=== PATIENT | male | born 1950 | race American Indian/Alaskan Native ===

== ENCOUNTER 2020-06-21 12:40 | Emergency (ER) | payer MEDICARE, MEDICAID ==
--- NOTE | 2020-06-21 13:14 | Event Note ---
ED Screening Note Date of service: 06/21/20 Time: 13:12 ED Screening Note: Patient with past medical history of hypertension, glaucoma, and a CVA back in December presents to the ER today complaint of worsening left-sided weakness and numbness since the stroke in December. States his symptoms been gradually getting worse over the past few months. He also reports worsening shortness of breath and chest pain over the past couple months. He also reports generalized shaking, decreased appetite, abdominal pain, and abnormal gait. He states his symptoms have been going on since his stroke in March but he feels like it is getting worse. He states that he fell twice yesterday and today due to his balance issues. He denies any head injury. Patient supposed to be on Xarelto but he has been out of all of his medications for about a month. This initial assessment/diagnostic orders/clinical plan/treatment(s) is/are subject to change based on patients health status, clinical progression and re- assessment by fellow clinical providers in the ED. Further treatment and workup at subsequent clinical providers discretion. Patient/guardian urged not to elope from the ED as their condition may be serious if not clinically assessed and managed. Initial orders include: CBC, CMP, EKG, troponin, chest x-ray, urine, head CT
[2020-06-21 13:43] LABS: Basophils % (Auto) 0.6 % (0.0-1.8); Eosinophils # (Auto) 0.1 K/mm3 (0.0-0.4); Eosinophils % (Auto) 1.7 % (0.0-4.3); Hematocrit 42.6 % (35.5-45.6); Hemoglobin 14.6 gm/dl (11.8-15.2); Lymphocytes # (Auto) 1.2 K/mm3 (1.2-5.4); Lymphocytes % (Auto) 34.2 % (13.4-35.0); Mean Corpuscular HGB Conc 34 % (32-34); Mean Corpuscular Volume 99 fl (84-94); Monocytes # (Auto) 0.3 K/mm3 (0.0-0.8); Monocytes % (Auto) 9.7 % (0.0-7.3); Platelet Count 237 K/mm3 (140-440); Red Cell Distribution Width 16.1 % (13.2-15.2)
[2020-06-21 14:07] LABS: Alanine Aminotransferase 14 units/L (7-56); Albumin 4.2 g/dL (3.9-5); BUN/Creatinine Ratio 9; Blood Urea Nitrogen 7 mg/dL (9-20); Calcium 9.2 mg/dL (8.4-10.2); Hemolysis Index 7
--- NOTE | 2020-06-21 14:09 | XRay Report ---
CHEST 1 VIEW INDICATION: dyspnea/chest pain. COMPARISON: None FINDINGS: SUPPORT DEVICES: None. HEART: Within normal limits. LUNGS/PLEURA: No acute air space or interstitial disease. ADDITIONAL FINDINGS: Moderate dextroscoliosis centered at the lower thoracic spine level. IMPRESSION: 1. No acute findings. Signer Name: Bandar De Luna MD Signed: 06/21/2020 2:05 PM Workstation Name: [id number]
--- NOTE | 2020-06-21 15:12 | Cat Scan Report ---
CT head/brain wo con INDICATION: worsening left sided weakness/numbness. TECHNIQUE: Routine CT head. All CT scans at this location are performed using CT dose reduction for A FRED by means of automated exposure control. COMPARISON: None. FINDINGS: Intracranial: Confluent periventricular and centrum semiovale white matter hypoattenuation most consi stent with sequela of chronic microvascular disease. Age-indeterminate lacunar infarction. Artifact d egrades image quality of the posterior fossa. Suh-white matter differentiation is maintained. No int racranial hemorrhage. No extra axial collection. No hydrocephalus. No herniation. Sinuses: Paranasal sinuses and mastoid air cells are essentially clear. Orbits: Globes are intact. Calvarium: No acute fracture. IMPRESSION: 1. Age-indeterminate right thalamic lacunar infarction which is likely subacute or chronic. 2. Advanced white matter disease most consistent with sequela of chronic microvascular disease. Signer Name: Oliver Olivia MD Signed: 06/21/2020 3:08 PM Workstation Name: [id number]
--- NOTE | 2020-06-21 16:09 | Emergency Department Report ---
HPI - General Chief Complaint: Neuro Symptoms/Deficit Time Seen by Provider: 06/21/20 12:54 - HPI HPI: This is a 70-year-old -[place] male who presents to the emergency department with complaint of increased numbness and discomfort to the left side of his body over the past few months. The patient had a stroke in December for which she went to [facility]. This stroke left him with left-sided weakness and numbness, and also left him with an upper extremity tremor. The patient presents to the emergency department today saying that he has had increased numbness and discomfort to the left side of his face, left arm, left side of his chest and flank, and down his left leg, and that increased over the past few months. The patient is concerned as he says that one of the physicians at [facility] told him that he would most likely have improvement of his symptoms from the stroke. Patient also has a history of hypertension. He is a tobacco smoker. He does not follow with any primary care physician or neurologist. He denies any headache, vision change, slurred speech, fever, or any acute neurological changes. ED Past Medical Hx - Past Medical History Previous Medical History?: Yes Additional medical history: stroke - Surgical History Past Surgical History?: No - Social History Smoking Status: Never Smoker Substance Use Type: None - Medications Home Medications: Home Medications Medication Instructions Recorded Confirmed Last Taken Type Gabapentin 300 mg PO BID #14 cap 06/21/20 Unknown Rx ED Review of Systems ROS: Stated complaint: NUMBNESS LEFT SIDE Other details as noted in HPI Comment: All other systems reviewed and negative Constitutional: denies: chills, fever Eyes: denies: eye pain, vision change ENT: denies: ear pain, throat pain Respiratory: denies: cough, shortness of breath Cardiovascular: denies: chest pain, palpitations Gastrointestinal: denies: abdominal pain, vomiting Genitourinary: denies: dysuria, discharge Musculoskeletal: myalgia. denies: back pain, arthralgia Skin: denies: rash, lesions Neurological: numbness. denies: headache Physical Exam - Physical Exam Physical Exam: GENERAL: The patient is well-developed well-nourished. HENT: Normocephalic. Atraumatic. Patient has moist mucous membranes. EYES: Extraocular motions are intact. No nystagmus. NECK: Supple. Trachea is midline. CHEST/LUNGS: Clear to auscultation. There is no respiratory distress noted. HEART/CARDIOVASCULAR: Regular. There is no tachycardia. There is no murmur. ABDOMEN: Abdomen is soft, nontender. Patient has normal bowel sounds. There is no abdominal distention. SKIN: Skin is warm and dry. NEURO: The patient is awake, alert, and oriented. The patient is cooperative. Subjective decrease sensation to the left side of the face, left arm and left leg when compared to the right. Bilateral upper extremity distal tremor. No facial asymmetry. There is a mild left upper and lower extremity pronator drift. MUSCULOSKELETAL: There is no tenderness or deformity. There is no limitation range of motion. ED Medical Decision Making - Lab Data Result diagrams: 06/21/20 13:16 06/21/20 13:16 Lab Results 06/21/20 06/21/20 06/21/20 Range/Units 13:16 13:16 16:27 WBC 3.4 L (4.5-11.0) K/mm3 RBC 4.30 (3.65-5.03) M/mm3 Hgb 14.6 (11.8-15.2) gm/dl Hct 42.6 (35.5-45.6) % MCV 99 H (84-94) fl MCH 34 H (28-32) pg MCHC 34 (32-34) % RDW 16.1 H (13.2-15.2) % Plt Count 237 (140-440) K/mm3 Lymph % (Auto) 34.2 (13.4-35.0) % [place] % (Auto) 9.7 H (0.0-7.3) % Eos % (Auto) 1.7 (0.0-4.3) % Baso % (Auto) 0.6 (0.0-1.8) % Lymph # (Auto) 1.2 (1.2-5.4) K/mm3 [place] # (Auto) 0.3 (0.0-0.8) K/mm3 Eos # (Auto) 0.1 (0.0-0.4) K/mm3 Baso # (Auto) 0.0 (0.0-0.1) K/mm3 Seg Neutrophils % 53.8 (40.0-70.0) % Seg Neutrophils # 1.8 (1.8-7.7) K/mm3 Sodium 141 (137-145) mmol/L Potassium 3.7 (3.6-5.0) mmol/L Chloride 104.1 (98-107) mmol/L Carbon Dioxide 26 (22-30) mmol/L Anion Gap 15 mmol/L BUN 7 L (9-20) mg/dL Creatinine 0.8 (0.8-1.3) mg/dL Estimated GFR > 60 ml/min BUN/Creatinine Ratio 9 % Glucose 106 H (75-100) mg/dL Calcium 9.2 (8.4-10.2) mg/dL Magnesium 1.70 (1.7-2.3) mg/dL Total Bilirubin 0.40 (0.1-1.2) mg/dL AST 33 (5-40) units/L ALT 14 (7-56) units/L Alkaline Phosphatase 83 (35-129) units/L Troponin T < 0.010 (0.00-0.029) ng/mL Total Protein 7.6 (6.3-8.2) g/dL Albumin 4.2 (3.9-5) g/dL Albumin/Globulin Ratio 1.2 % Urine Color (Yellow) Urine Turbidity (Clear) Urine pH (5.0-7.0) Ur Specific [place] (1.003-1.030) Urine Protein (Negative) mg/dL Urine Glucose (UA) (Negative) mg/dL Urine Ketones (Negative) mg/dL Urine Blood (Negative) Urine Nitrite (Negative) Ur Reducing Substances Urine Bilirubin (Negative) Urine Ictotest Urine Urobilinogen (<2.0) mg/dL Ur Leukocyte Esterase (Negative) Urine WBC (Auto) (0.0-6.0) /HPF Urine RBC (Auto) (0.0-6.0) /HPF Urine Opiates Screen Negative Urine Methadone Screen Negative Ur Barbiturates Screen Negative Ur Phencyclidine Scrn Negative Ur Amphetamines Screen Negative U Benzodiazepines Scrn Negative Urine Cocaine Screen Negative U Marijuana (THC) Screen Positive Drugs of Abuse Note Disclamer 06/21/20 Range/Units 16:27 WBC (4.5-11.0) K/mm3 RBC (3.65-5.03) M/mm3 Hgb (11.8-15.2) gm/dl Hct (35.5-45.6) % MCV (84-94) fl MCH (28-32) pg MCHC (32-34) % RDW (13.2-15.2) % Plt Count (140-440) K/mm3 Lymph % (Auto) (13.4-35.0) % [place] % (Auto) (0.0-7.3) % Eos % (Auto) (0.0-4.3) % Baso % (Auto) (0.0-1.8) % Lymph # (Auto) (1.2-5.4) K/mm3 [place] # (Auto) (0.0-0.8) K/mm3 Eos # (Auto) (0.0-0.4) K/mm3 Baso # (Auto) (0.0-0.1) K/mm3 Seg Neutrophils % (40.0-70.0) % Seg Neutrophils # (1.8-7.7) K/mm3 Sodium (137-145) mmol/L Potassium (3.6-5.0) mmol/L Chloride (98-107) mmol/L Carbon Dioxide (22-30) mmol/L Anion Gap mmol/L BUN (9-20) mg/dL Creatinine (0.8-1.3) mg/dL Estimated GFR ml/min BUN/Creatinine Ratio % Glucose (75-100) mg/dL Calcium (8.4-10.2) mg/dL Magnesium (1.7-2.3) mg/dL Total Bilirubin (0.1-1.2) mg/dL AST (5-40) units/L ALT (7-56) units/L Alkaline Phosphatase (35-129) units/L Troponin T (0.00-0.029) ng/mL Total Protein (6.3-8.2) g/dL Albumin (3.9-5) g/dL Albumin/Globulin Ratio % Urine Color Yellow (Yellow) Urine Turbidity Clear (Clear) Urine pH 7.0 (5.0-7.0) Ur Specific [place] 1.013 (1.003-1.030) Urine Protein <15 mg/dl (Negative) mg/dL Urine Glucose (UA) Neg (Negative) mg/dL Urine Ketones Neg (Negative) mg/dL Urine Blood Neg (Negative) Urine Nitrite Neg (Negative) Ur Reducing Substances Not Reportable Urine Bilirubin Neg (Negative) Urine Ictotest Not Reportable Urine Urobilinogen < 2.0 (<2.0) mg/dL Ur Leukocyte Esterase Neg (Negative) Urine WBC (Auto) < 1.0 (0.0-6.0) /HPF Urine RBC (Auto) 1.0 (0.0-6.0) /HPF Urine Opiates Screen Urine Methadone Screen Ur Barbiturates Screen Ur Phencyclidine Scrn Ur Amphetamines Screen U Benzodiazepines Scrn Urine Cocaine Screen U Marijuana (THC) Screen Drugs of Abuse Note - Radiology Data Radiology results: report reviewed, image reviewed interpreted by me: Chest x-ray does not show any acute process. There are no pleural effusions, obvious pneumonia and there is no pneumothorax. No significant cardiomegaly. CT head/brain wo con INDICATION: worsening left sided weakness/numbness. TECHNIQUE: Routine CT head. All CT scans at this location are performed using CT dose reduction for ALARA by means of automated exposure control. COMPARISON: None. FINDINGS: Intracranial: Confluent periventricular and centrum semiovale white matter hypoattenuation most consistent with sequela of chronic microvascular disease. Age-indeterminate lacunar infarction. Artifact degrades image quality of the posterior fossa. Suh-white matter differentiation is maintained. No intracranial hemorrhage. No extra axial collection. No hyd rocephalus. No herniation. Sinuses: Paranasal sinuses and mastoid air cells are essentially clear. Orbits: Globes are intact. Calvarium: No acute fracture. IMPRESSION: 1. Age-indeterminate right thalamic lacunar infarction which is likely subacute or chronic. 2. Advanced white matter disease most consistent with sequela of chronic microvascular disease. - Medical Decision Making This patient presents to the emergency department with a complaint of some num bness, but also discomfort, to the left side of his body including the face, torso, arm and leg. Overall the patient says that this has been going on since he had a stroke back in December 2019, but it increased over the past few months. He denies any acute physical or neurological changes. Patient says that the discomfort he is experiencing is keeping him from getting appropriate sleep at night. On examination the patient does have some subjective decrease sensation to the left side of his body when compared to the right. There is some mild pronator drift to the left upper and lower extremities but this is chronic since his CVA. The patient was seen getting up and ambulating around t he emergency department multiple times using his cane. The patient had a CT scan of the head without contrast through triage that does not show any acute process. There is an age-indeterminate right thalamic lacunar infarct that is most likely subacute versus chronic and some chronic advanced white matter disease. The patient's labs are mostly unremarkable including CBC, metabolic panel, urinalysis and UDS, except for UDS positive for marijuana. Vital signs have been reassuring throughout his ED course including being afebrile. The patient denies any new or acute weakness. The decrease sensation/numbness also appears to be chronic. I suspect that the discomfort that he is experiencing is some type of neuropathy. The patient continues to smoke cigarettes. He does not follow-up with primary care regularly and does not have a neurologist. He appears safe for discharge home. He will be given outpatient referrals for primary care and a neurologist. He has been given a prescription for some gabapentin to help with the suspected neuropathy and hopefully will also help him get rest at night. We had a long conversation about smoking cessation and the importance of outpatient follow-up. The patient also understands the importance of returning to the closest emergency department if he does experience any worsening of his symptoms, any new or concerning symptoms not addressed during this emergency department visit, or with any acute distress. Critical Care Time: No Critical care attestation.: If time is entered above; I have spent that time in minutes in the direct care of this critically ill patient, excluding procedure time. ED Disposition Clinical Impression: Neuropathy, History of CVA (cerebrovascular accident), Tobacco use disorder Disposition: DC-01 TO HOME OR SELFCARE Is pt being admited?: No Condition: Stable Instructions: Neuropathic Pain, Tobacco Use Disorder Additional Instructions: Please follow-up with a primary care physician in the next few days. I have given you a referral for a local primary care physician, Dr. Aron Dougherty, as well as a local clinic, [facility]. I have given you a referral for a local neurologist, Dr. Guillory, to follow-up regarding your history of a stroke and what may be some neuropathic pain (nerve pain). You have been prescribed a medication that is sedating and therefore should not be taken prior to driving, working, and responsible for children and in no way should be mixed with alcohol of any quantity. Return to the emergency department with any worsening of your symptoms, new or concerning symptoms not addressed during this current emergency department visit, or with any acute distress. Prescriptions: Gabapentin 300 mg PO BID #14 cap Referrals: PRIMARY CAREMD [Primary Care Provider] - 2-3 Days DAMEON GUILLORY MD [Referring] - 2-3 Days ARON DOUGHERTY MD [Staff Physician] - 2-3 Days [facility] [Provider Group] - 2-3 Days Time of Disposition: 17:25
[2020-06-21 16:26] VITALS: BP 146/92
[2020-06-21 17:06] LABS: Bilirubin,Urine NEG (Negative); Blood,Urine NEG (Negative); Color,Urine Yellow (Yellow); Protein,Urine <15 mg/dL mg/dL (Negative); Urobilinogen,Urine < 2.0 mg/dL (<2.0)
[2020-06-21 17:11] LABS: Amphetamine Screen,Urine Negative; Benzodiazepines Screen,Urine Negative; Cocaine Screen,Urine Negative; Methadone Screen,Urine Negative; Opiate Screen,Urine Negative
[2020-06-21 17:15] LABS: WBC,Urine < 1.0 /HPF (0.0-6.0)
[2020-06-21 17:31] LABS: Cannabinoid Screen,Urine Positive
== END 2020-06-21 17:30 | disposition home or self-care (01) ==
LOC: ED 12:40
DX: G62.9 Polyneuropathy, unspecified (principal); Z72.0 Tobacco use; Z86.73 Personal history of transient ischemic attack (TIA), and cerebral infarction without residual deficits; Z79.899 Other long term (current) drug therapy
CPT/HCPCS: 36415; 70450; 71045; 80053; 80307; 81001; 83735; 84484; 85025

== ENCOUNTER 2021-03-02 22:39 | Emergency (ER) | payer MEDICARE ==
[2021-03-02] MEDS ORDERED: IBUPROFEN 800 MG TAB PO ONE (22:49)
[2021-03-02] MEDS ORDERED: ACETAMINOPHEN 500 MG TAB PO ONE (22:49)
--- NOTE | 2021-03-02 22:54 | Emergency Department Report ---
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 He normally walks with a cane or walker. He stumbled and fell onto the ground. He denies head trauma. He denies loss consciousness. He denies any associated injury. He is otherwise in his normal state of health. Complaint: fall -: Sudden Fall From: standing When Fall Occurred: other (3 days ago) Place Fall Occurred: home Loss of Consciousness: none Prolonged Down Time?: no Symptoms Prior to Fall: none Location: chest Severity: mild Quality: aching Context: tripped/slipped Associated Symptoms: denies - Related Data Previous Rx's Medication Instructions Recorded Last Taken Type Gabapentin 300 mg PO BID #14 cap 06/21/20 Unknown Rx HYDROcodone/APAP 5-325 [[place] 1 each PO Q6HR PRN #15 tablet 03/03/21 Unknown Rx 5/325] Ibuprofen [Motrin 400 MG tab] 400 mg PO Q8H PRN #20 tablet 03/03/21 Unknown Rx Allergies Allergy/AdvReac Type Severity Reaction Status Date / Time No Known Allergies Allergy Verified 06/21/20 12:49 ED Review of Systems ROS: Stated complaint: FALL INJURY Other details as noted in HPI Comment: All other systems reviewed and negative Constitutional: denies: fever Respiratory: denies: cough, shortness of breath Cardiovascular: chest pain Gastrointestinal: denies: abdominal pain, nausea, vomiting Neurological: denies: headache ED Past Medical Hx - Past Medical History Previous Medical History?: Yes Hx CVA: Yes Additional medical history: stroke - Surgical History Past Surgical History?: Yes Additional Surgical History: Neck surgery - Social History Smoking Status: Current Every Day Smoker Substance Use Type: Alcohol - Medications Home Medications: Home Medications Medication Instructions Recorded Confirmed Last Taken Type Gabapentin 300 mg PO BID #14 cap 06/21/20 Unknown Rx HYDROcodone/APAP 5-325 [[place] 1 each PO Q6HR PRN #15 tablet 03/03/21 Unknown Rx 5/325] Ibuprofen [Motrin 400 MG tab] 400 mg PO Q8H PRN #20 tablet 03/03/21 Unknown Rx ED Physical Exam - General Limitations: No Limitations General appearance: alert, in no apparent distress - Head Head exam: Present: atraumatic, normocephalic - Eye Eye exam: Present: normal appearance - ENT ENT exam: Present: mucous membranes moist - Neck Neck exam: Present: normal inspection, full ROM - Respiratory Respiratory exam: Present: normal lung sounds bilaterally, chest wall tenderness. Absent: respiratory distress, wheezes, rales, rhonchi - Cardiovascular Cardiovascular Exam: Present: regular rate, normal rhythm. Absent: systolic murmur, diastolic murmur, rubs, gallop - GI/Abdominal GI/Abdominal exam: Present: soft, normal bowel sounds. Absent: distended, tenderness, guarding, rebound - Extremities Exam Extremities exam: Present: normal inspection - Back Exam Back exam: Present: normal inspection - Neurological Exam Neurological exam: Present: alert, oriented X3 - Psychiatric Psychiatric exam: Present: normal affect, normal mood - Skin Skin exam: Present: warm, dry, intact, normal color. Absent: rash ED Course Vital Signs 03/02/21 22:52 Temperature 98.1 F Pulse Rate 81 Respiratory 20 Rate Blood Pressure 155/117 O2 Sat by Pulse 97 Oximetry ED Medical Decision Making - Radiology Data Radiology results: report reviewed Patient Name: CYRUS ALMANZA Gender: Male Date of : 1950 Referring Provider: GINGER SALDIVAR Organization: [facility] Accession Number: [id number] Requested Date: March 02, 2021 22:49 Report Status: Final Requested Procedure: 1 Procedure Description: XR ribs UNI w PA chest 3+V LT Modality: XR Findings Reporting MD: Orville Jean Dictation Time: March 02, 2021 22:54 River Tester: Not available Adjunct Sociology Professor Date: Chest with left RIBS 4 views. HISTORY: Rib pain status post fall. FINDINGS: Heart size is normal. Prominent dextroconvex scoliosis has its apex at the lower thoracic spine. The lungs are clear. Fractures involving the anterolateral aspect of the left sixth and seventh ribs. Signer Name: Orville Jean MD Signed: 03/02/2021 10:54 PM Workstation Name: [id number] - Medical Decision Making Rib fractures of the sixth and seventh rib without pneumothorax. Prescribed [place] and ibuprofen. Critical care attestation.: If time is entered above; I have spent that time in minutes in the direct care of this critically ill patient, excluding procedure time. ED Disposition Clinical Impression: Ribs, multiple fractures Disposition: 01 HOME / SELF CARE / HOMELESS Is pt being admited?: No Does the pt Need Aspirin: No Condition: Stable Instructions: Rib Fracture, [id number] Prescriptions: Ibuprofen [Motrin 400 MG tab] 400 mg PO Q8H PRN #20 tablet PRN Reason: Pain , Severe (7-10) HYDROcodone/APAP 5-325 [[place] 5/325] 1 each PO Q6HR PRN #15 tablet PRN Reason: Pain Referrals: RONNI YODER MD [Staff Physician] - as needed
--- NOTE | 2021-03-02 23:58 | XRay Report ---
Chest with left RIBS 4 views. HISTORY: Rib pain status post fall. FINDINGS: Heart size is normal. Prominent dextroconvex scoliosis has its apex at the lower thoracic s pine. The lungs are clear. Fractures involving the anterolateral aspect of the left sixth and seventh ribs. Signer Name: Orville Jean MD Signed: 03/02/2021 11:54 PM Workstation Name: [id number]
[2021-03-03 00:30] VITALS: BP 166/100
== END 2021-03-03 01:28 | disposition home or self-care (01) ==
LOC: ED 22:39
DX: S22.42XA Multiple fractures of ribs, left side, initial encounter for closed fracture (principal); F17.200 Nicotine dependence, unspecified, uncomplicated; Z98.890 Other specified postprocedural states; Z72.89 Other problems related to lifestyle; Z79.899 Other long term (current) drug therapy; W18.39XA Other fall on same level, initial encounter; Y93.89 Activity, other specified; Y92.89 Other specified places as the place of occurrence of the external cause; Y99.8 Other external cause status
CPT/HCPCS: 99284

== ENCOUNTER 2021-03-04 21:14 | Emergency (ER) | payer MEDICARE ==
[2021-03-04 21:25] VITALS: BP 148/98
[2021-03-04] MEDS ORDERED: KETOROLAC 60 MG/2 ML INJ IM ONE (22:15)
[2021-03-04] MEDS ORDERED: HYDROcodone/ACETAMINOPHEN 5-325 MG TAB PO ONE (22:15)
--- NOTE | 2021-03-04 22:21 | Emergency Department Report ---
ED General Adult HPI - General Chief complaint: Pain General Stated complaint: NAUSEA/ABDOMINAL PAIN Time Seen by Provider: 03/04/21 22:05 Source: EMS Mode of arrival: Stretcher Limitations: No Limitations - History of Present Illness Initial comments: 70-year-old male with CVA residual left-sided deficit and hypertension presents to the hospital with complaints of continued left lateral rib pain. Patient was here on the 16 for the same and diagnosed with fractures involving the anterior aspect of the left sixth and seventh ribs via x-ray. Patient states he gave his prescriptions to someone to fill but they will not be able to get the medications for him until tomorrow. He received prescriptions for [place] 5/325 x 15 tablets and ibuprofen 400 mg x 20 tablets. Patient requesting something for pain to get him through the night due to persistent moderate to severe left- sided rib pain worse with movement, palpation, and deep inspiration. Patient denies shortness of breath or fever. - Related Data Previous Rx's Medication Instructions Recorded Last Taken Type Gabapentin 300 mg PO BID #14 cap 06/21/20 Unknown Rx HYDROcodone/APAP 5-325 [[place] 1 each PO Q6HR PRN #15 tablet 03/03/21 Unknown Rx 5/325] Ibuprofen [Motrin 400 MG tab] 400 mg PO Q8H PRN #20 tablet 03/03/21 Unknown Rx Allergies Allergy/AdvReac Type Severity Reaction Status Date / Time No Known Allergies Allergy Verified 03/04/21 21:25 ED Review of Systems ROS: Stated complaint: NAUSEA/ABDOMINAL PAIN Other details as noted in HPI Comment: All other systems reviewed and negative ED Past Medical Hx - Past Medical History Hx Hypertension: Yes Hx CVA: Yes Additional medical history: stroke - Surgical History Additional Surgical History: Neck surgery - Social History Smoking Status: Current Every Day Smoker Substance Use Type: Alcohol - Medications Home Medications: Home Medications Medication Instructions Recorded Confirmed Last Taken Type Gabapentin 300 mg PO BID #14 cap 06/21/20 Unknown Rx HYDROcodone/APAP 5-325 [[place] 1 each PO Q6HR PRN #15 tablet 03/03/21 Unknown Rx 5/325] Ibuprofen [Motrin 400 MG tab] 400 mg PO Q8H PRN #20 tablet 03/03/21 Unknown Rx ED Physical Exam - General Limitations: No Limitations - Other Other exam information: General: No acute distress Head: Atraumatic Eyes: normal appearance ENT: Moist mucous membranes Neck: Normal appearance, no midline tenderness Chest: Clear to auscultation bilaterally. Reproducible left lower and lateral rib tenderness to palpation CV: Regular rate and rhythm Abdomen: Soft, normal bowel sounds, nontender, nondistended, no rebound or guarding Back: Normal inspection Extremity: Normal inspection, full range of motion Neuro: Alert O x 3, speech clear, left-sided arm and leg weakness compared to right chronic as per patient Psych: Appropriate behavior Skin: No rash ED Course Vital Signs 03/04/21 21:24 Temperature 97.7 F Pulse Rate 76 Respiratory 16 Rate Blood Pressure 148/98 [Left] O2 Sat by Pulse 98 Oximetry ED Medical Decision Making - Medical Decision Making pt provided norco and toradol IM in the ED. Pt plans to get the script filled tomorrow. Vitals normal Critical Care Time: No Critical care attestation.: If time is entered above; I have spent that time in minutes in the direct care of this critically ill patient, excluding procedure time. ED Disposition Clinical Impression: Chest wall pain Ribs, multiple fractures Qualifiers: Encounter type: subsequent encounter Laterality: left Disposition: 01 HOME / SELF CARE / HOMELESS Is pt being admited?: No Does the pt Need Aspirin: No Condition: Stable Instructions: Rib Fracture, [id number] Additional Instructions: Take the medication as prescribed. Follow-up with your doctor or doctor/clinic provided. Return if symptoms worsen as indicated by your discharge instructions. Referrals: your, doctor [Other] - 3-5 Days RONNI YODER MD [Staff Physician] - 3-5 Days Time of Disposition: 22:22
== END 2021-03-04 22:42 | disposition home or self-care (01) ==
LOC: ED 21:14
DX: S22.42XA Multiple fractures of ribs, left side, initial encounter for closed fracture (principal); R07.89 Other chest pain; I10 Essential (primary) hypertension; F17.200 Nicotine dependence, unspecified, uncomplicated; Z72.89 Other problems related to lifestyle; Z79.899 Other long term (current) drug therapy; X58.XXXA Exposure to other specified factors, initial encounter; Y93.89 Activity, other specified; Y92.89 Other specified places as the place of occurrence of the external cause; Y99.8 Other external cause status
CPT/HCPCS: 96372; 99283; J1885

== ENCOUNTER 2021-03-08 03:00 | Emergency (ER) | payer MEDICARE ==
[2021-03-08 03:07] VITALS: BP 162/109
[2021-03-08] MEDS ORDERED: fentaNYL 100 MCG/2 ML INJ IM ONE (03:13)
[2021-03-08] MEDS ORDERED: ONDANSETRON 4 MG/2 ML INJ IM ONE (03:13)
[2021-03-08] MEDS ORDERED: KETOROLAC 60 MG/2 ML INJ IM ONE (03:14)
--- NOTE | 2021-03-08 03:16 | Emergency Department Report ---
HPI - General Chief Complaint: Pain General Time Seen by Provider: 03/08/21 03:08 - HPI HPI: MSE 5 Patient is a 70-year-old male present with a chief complaint of rib pain. The patient sustained a fall from standing 02/28/2021 and presented to this ED 03/02/2021 where he was diagnosed with a left anterolateral 6th and 7th rib fracture without pneumothorax. The patient presented to this ED 03/04/2021 for the same pain after stating the person he gave his [place] prescription to his not able to go to the pharmacy until the following day. Today the patient states the person who he gave his prescription to has not returned with his medication so he presents today for pain control. ED Past Medical Hx - Past Medical History Hx Hypertension: Yes Hx CVA: Yes Additional medical history: stroke - Surgical History Additional Surgical History: Neck surgery - Family History Family history: no significant - Social History Smoking Status: Current Every Day Smoker (1/7 pack/day) Substance Use Type: None (Denies illicit drug use) - Medications Home Medications: Home Medications Medication Instructions Recorded Confirmed Last Taken Type Gabapentin 300 mg PO BID #14 cap 06/21/20 Unknown Rx HYDROcodone/APAP 5-325 [[place] 1 each PO Q6HR PRN #15 tablet 03/03/21 Unknown Rx 5/325] Ibuprofen [Motrin 400 MG tab] 400 mg PO Q8H PRN #20 tablet 03/03/21 Unknown Rx HYDROcodone/APAP 5-325 [[place] 1 - 2 each PO Q6HR PRN #14 tablet 03/08/21 Unknown Rx 5/325] Spirometers and Accessories 1 each MC TID #1 each 03/08/21 Unknown Rx [Mistassist] ED Review of Systems ROS: Stated complaint: RIB PAIN Other details as noted in HPI Constitutional: denies: fever Eyes: denies: eye pain ENT: denies: throat pain Respiratory: denies: shortness of breath Cardiovascular: denies: chest pain Endocrine: no symptoms reported Gastrointestinal: denies: abdominal pain Musculoskeletal: other (Left rib pain) Neurological: denies: headache Physical Exam - Physical Exam Vital Signs: Vital Signs 03/08/21 03:06 Temperature 98.9 F Pulse Rate 84 Respiratory 18 Rate Blood Pressure 162/109 [Left] O2 Sat by Pulse 98 Oximetry Physical Exam: GENERAL: The patient is well-developed well-nourished male sitting in chair not appearing to be in acute distress. [] HEENT: Normocephalic. Atraumatic. Extraocular motions are intact. Patient has moist mucous membranes. NECK: Supple. Trachea midline CHEST/LUNGS: Clear to auscultation. There is no respiratory distress noted. Breath sounds equal bilaterally HEART/CARDIOVASCULAR: Regular. There is no tachycardia. There is no gallop rub or murmur. ABDOMEN: Abdomen is soft, nontender. Patient has normal bowel sounds. There is no abdominal distention. SKIN: There is no rash. There is no edema. There is no diaphoresis. NEURO: The patient is awake, alert, and oriented. The patient is cooperative. GCS 15. The patient has normal speech MUSCULOSKELETAL: There is pain to the left ribs. There is no evidence of acute injury. ED Course Vital Signs 03/08/21 03:06 Temperature 98.9 F Pulse Rate 84 Respiratory 18 Rate Blood Pressure 162/109 [Left] O2 Sat by Pulse 98 Oximetry ED Medical Decision Making - Differential Diagnosis Rib fracture pain Critical care attestation.: If time is entered above; I have spent that time in minutes in the direct care of this critically ill patient, excluding procedure time. ED Disposition Clinical Impression: Ribs, multiple fractures Disposition: 01 HOME / SELF CARE / HOMELESS Is pt being admited?: No Does the pt Need Aspirin: No Condition: Stable Instructions: Rib Fracture, [id number], How to Use an Incentive Spirometer Additional Instructions: Return to the emergency department should you develop worsening symptoms, inability to tolerate food or liquids, high fever or any other concerns Prescriptions: Spirometers and Accessories [Mistassist] 1 each MC TID #1 each HYDROcodone/APAP 5-325 [[place] 5/325] 1 - 2 each PO Q6HR PRN #14 tablet PRN Reason: Pain Referrals: CARTER WARNER MD [Staff Physician] - 3-5 Days Time of Disposition: 03:21
== END 2021-03-08 04:05 | disposition home or self-care (01) ==
LOC: ED 03:00
DX: R07.81 Pleurodynia (principal); S22.42XD Multiple fractures of ribs, left side, subsequent encounter for fracture with routine healing; I10 Essential (primary) hypertension; F17.200 Nicotine dependence, unspecified, uncomplicated; Z86.73 Personal history of transient ischemic attack (TIA), and cerebral infarction without residual deficits; X58.XXXD Exposure to other specified factors, subsequent encounter
CPT/HCPCS: 96372; 99283; J1885; J2405; J3010

== ENCOUNTER 2021-03-10 12:30 | Emergency (ER) | payer MEDICARE ==
[2021-03-10] MEDS ORDERED: ONDANSETRON 4 MG/2 ML INJ IM ONE (13:39)
[2021-03-10] MEDS ORDERED: fentaNYL 100 MCG/2 ML INJ IM ONE (13:39)
[2021-03-10 13:53] VITALS: BP 122/74
--- NOTE | 2021-03-10 14:15 | Emergency Department Report ---
HPI - General Chief Complaint: Abdominal Pain Time Seen by Provider: 03/10/21 13:12 - HPI HPI: Room 29 The patient is a 70-year-old male present with a chief complaint of rib pain. The patient sustained a fall from standing 02/28/2021 and presented to this ED 03/02/2021 where he was diagnosed with a left anterolateral 6th and 7th rib fracture without pneumothorax. The patient presented to this ED 03/04/2021 for the same pain after stating the person he gave his [place] prescription to had not returned with his medication. I saw the patient 03/08/2021 for the same and he informed me that the person who had given his [place] prescription to had not return with this medication. I wrote the patient a prescription for [place] 5/325 #14 at that time upon discharge. Today the patient returns for her rib pain when asked him if he has been taking the pain medication he states the person who he had given the prescription to to get filled has not returned with his medication. I reminded the patient that he told me this last time that I saw him 2 days ago and then I had written him a prescription for pain medication. The patient then pauses and says "I do not know." ED Past Medical Hx - Past Medical History Previous Medical History?: Yes Hx Hypertension: Yes Hx CVA: Yes Additional medical history: stroke - Surgical History Additional Surgical History: Neck surgery - Family History Family history: no significant - Social History Smoking Status: Current Every Day Smoker (1/7 pack/day) Substance Use Type: None (Denies illicit drug use) - Medications Home Medications: Home Medications Medication Instructions Recorded Confirmed Last Taken Type Gabapentin 300 mg PO BID #14 cap 06/21/20 Unknown Rx HYDROcodone/APAP 5-325 [[place] 1 each PO Q6HR PRN #15 tablet 03/03/21 Unknown Rx 5/325] Ibuprofen [Motrin 400 MG tab] 400 mg PO Q8H PRN #20 tablet 03/03/21 Unknown Rx HYDROcodone/APAP 5-325 [[place] 1 - 2 each PO Q6HR PRN #14 tablet 03/08/21 Unknown Rx 5/325] Spirometers and Accessories 1 each MC TID #1 each 03/08/21 Unknown Rx [Mistassist] ED Review of Systems ROS: Stated complaint: FLANK PAIN Other details as noted in HPI Constitutional: no symptoms reported Respiratory: no symptoms reported Endocrine: no symptoms reported Physical Exam - Physical Exam Vital Signs: Vital Signs 03/10/21 03/10/21 12:33 13:50 Temperature 98.7 F 98.4 F Pulse Rate 91 H 81 Respiratory 16 12 Rate Blood Pressure 176/118 122/74 [Right] O2 Sat by Pulse 96 97 Oximetry Physical Exam: GENERAL: The patient is well-developed well-nourished male sitting in chair not appearing to be in acute distress HEENT: Normocephalic. Atraumatic. Extraocular motions are intact. Patient has moist mucous membranes. NECK: Supple. Trachea midline CHEST/LUNGS: Clear to auscultation. There is no respiratory distress noted. HEART/CARDIOVASCULAR: Regular. There is no tachycardia. There is no gallop rub or murmur. ABDOMEN: Abdomen is soft, nontender. Patient has normal bowel sounds. There is no abdominal distention. SKIN: There is no rash. There is no edema. There is no diaphoresis. NEURO: The patient is awake, alert, and oriented. The patient is cooperative. The patient has no focal neurologic deficits. The patient has normal speech. GCS 15 MUSCULOSKELETAL: There is no evidence of acute injury. ED Course Vital Signs 03/10/21 03/10/21 12:33 13:50 Temperature 98.7 F 98.4 F Pulse Rate 91 H 81 Respiratory 16 12 Rate Blood Pressure 176/118 122/74 [Right] O2 Sat by Pulse 96 97 Oximetry ED Medical Decision Making - Differential Diagnosis Rib fracture Critical care attestation.: If time is entered above; I have spent that time in minutes in the direct care of this critically ill patient, excluding procedure time. ED Disposition Clinical Impression: Ribs, multiple fractures Disposition: 01 HOME / SELF CARE / HOMELESS Is pt being admited?: No Does the pt Need Aspirin: No Condition: Stable Instructions: Rib Fracture, [id number] Additional Instructions: Return to the emergency department should you develop worsening symptoms, inability to tolerate food or liquids, high fever or any other concerns Referrals: JEAN PIERRE GREGORY MD [Primary Care Provider] - 3-5 Days MONTY ROCKWELL MD [Referring] - 3-5 Days [facility] [Provider Group] - 3-5 Days Time of Disposition: 14:22
== END 2021-03-10 14:47 | disposition home or self-care (01) ==
LOC: ED 12:30
DX: S22.42XA Multiple fractures of ribs, left side, initial encounter for closed fracture (principal); I10 Essential (primary) hypertension; Z79.899 Other long term (current) drug therapy; F17.200 Nicotine dependence, unspecified, uncomplicated; X58.XXXA Exposure to other specified factors, initial encounter; Y93.89 Activity, other specified; Y92.89 Other specified places as the place of occurrence of the external cause; Y99.8 Other external cause status
CPT/HCPCS: 96372; 99283; J2405; J3010

== ENCOUNTER 2021-09-01 22:04 | Emergency (ER) | payer MEDICARE ==
[2021-09-01] MEDS ORDERED: HYDROcodone/ACETAMINOPHEN 5-325 MG TAB PO ONE (23:12)
--- NOTE | 2021-09-01 23:24 | Emergency Department Report ---
HPI - General Time Seen by Provider: 09/01/21 23:01 - HPI HPI: Room 1 The patient is a 71-year-old male present with a chief complaint of shoulder pain. Patient states he came to the emergency department because he has had pain in both shoulders. Patient states since his stroke several months ago he has had pain in his left side. Patient states for the past 4 weeks he has frequently had intermittent pain in left shoulder described as sharp in nature. Patient also complains of pain in the right shoulder for the past 3 weeks intermittently and less frequent than the right. Patient denies other symptoms. Patient currently gives his left shoulder pain a score of 8/10 ED Past Medical Hx - Past Medical History Hx Hypertension: Yes Hx CVA: Yes (Left-sided weakness) Additional medical history: stroke - Surgical History Additional Surgical History: Neck surgery - Family History Family history: no significant - Social History Smoking Status: Current Every Day Smoker (04/30 pack/day) Substance Use Type: None (Denies illicit drug use), Alcohol (Occasional) - Medications Home Medications: Home Medications Medication Instructions Recorded Confirmed Last Taken Type Gabapentin 300 mg PO BID #14 cap 06/21/20 Unknown Rx HYDROcodone/APAP 5-325 [[place] 1 each PO Q6HR PRN #15 tablet 03/03/21 Unknown Rx 5/325] Ibuprofen [Motrin 400 MG tab] 400 mg PO Q8H PRN #20 tablet 03/03/21 Unknown Rx HYDROcodone/APAP 5-325 [[place] 1 - 2 each PO Q6HR PRN #14 tablet 03/08/21 Unknown Rx 5/325] Spirometers and Accessories 1 each MC TID #1 each 03/08/21 Unknown Rx [Mistassist] Naproxen [Naprosyn] 500 mg PO Q12H PRN #20 09/02/21 Unknown Rx traMADoL [Ultram] 50 mg PO Q6HR PRN #20 tablet 09/02/21 Unknown Rx ED Review of Systems ROS: Stated complaint: WEAKNESS Other details as noted in HPI Constitutional: no symptoms reported Eyes: denies: eye pain ENT: denies: throat pain Respiratory: no symptoms reported Cardiovascular: denies: chest pain Endocrine: no symptoms reported Gastrointestinal: denies: abdominal pain Genitourinary: denies: dysuria Musculoskeletal: arthralgia Neurological: denies: headache Physical Exam - Physical Exam Physical Exam: GENERAL: The patient is well-developed well-nourished male lying on stretcher not appearing to be in acute distress. [] HEENT: Normocephalic. Atraumatic. Extraocular motions are intact. Patient has moist mucous membranes. NECK: Supple. Trachea midline CHEST/LUNGS: Clear to auscultation. There is no respiratory distress noted. HEART/CARDIOVASCULAR: Regular. There is no tachycardia. There is no gallop rub or murmur. 2+ left radial ABDOMEN: Abdomen is soft, nontender. Patient has normal bowel sounds. There is no abdominal distention. SKIN: There is no rash. There is no edema. There is no diaphoresis. NEURO: The patient is awake, alert, and oriented. The patient is cooperative. The patient has left sided weakness from previous CVA. The patient has normal speech MUSCULOSKELETAL: There is no evidence of acute injury. ED Medical Decision Making - Lab Data Result diagrams: 09/01/21 23:31 09/01/21 23:31 Laboratory Tests 09/01/21 09/01/21 09/02/21 23:31 23:31 02:32 WBC 6.1 RBC 4.07 Hgb 13.1 Hct 39.2 MCV 96 H MCH 32 MCHC 33 RDW 13.5 Plt Count 144 Lymph % (Auto) 11.5 L [place] % (Auto) 5.7 Eos % (Auto) 0.3 Baso % (Auto) 0.4 Lymph # (Auto) 0.7 L [place] # (Auto) 0.3 Eos # (Auto) 0.0 Baso # (Auto) 0.0 Seg Neutrophils % 82.1 H Seg Neutrophils # 5.0 Sodium 141 Potassium 3.7 Chloride 104.2 Carbon Dioxide 24 Anion Gap 17 BUN 23 H Creatinine 1.1 Estimated GFR > 60 BUN/Creatinine Ratio 21 Glucose 99 Calcium 9.8 Total Creatine Kinase 386 H CK-MB (CK-2) 4.9 H CK-MB (CK-2) Rel Index 1.2 Troponin T < 0.010 < 0.010 - EKG Data -: EKG Interpreted by [place] EKG shows normal: sinus rhythm, axis Rate: normal - EKG Data When compared to previous EKG there are: previous EKG unavailable Interpretation: other (No ischemic changes seen) - Radiology Data Radiology results: report reviewed (Bilateral shoulder x-ray), image reviewed (Bilateral shoulder x-ray) interpreted by me: Bilateral shoulder x-ray-no acute fracture, no dislocation [facility] [address] [place] [address] XRay Report Signed Patient: CYRUS ALMANZA MR#: [id number] : 1950 Acct:[id number] Age/Sex: 71 / M ADM Date: 09/01/21 Loc: ED Attending Dr: Ordering Physician: GRETTA MCCULLOUGH MD Date of Service: 09/01/21 Procedure(s): XR shoulder BILAT 2+V Accession Number(s): [id number] cc: GRETTA MCCULLOUGH MD Fluoro Time In Minutes: XR shoulder BILAT 2+V INDICATION / CLINICAL INFORMATION: Pain. COMPARISON: None available. FINDINGS: No acute fracture or malalignment of either shoulder. There is mild osteoarthritis bilaterally. No focal soft tissue abnormality. Visualized lungs are clear. IMPRESSION: No acute osseous abnormality of either shoulder. Signer Name: Jacqueline Bernal MD Signed: 09/01/2021 11:51 PM Workstation Name: [id number] Transcribed By: JS Dictated By: JACQUELINE BERNAL MD Electronically Authenticated By: JACQUELINE BERNAL MD Signed Date/Time: 09/01/212350 DD/ 48 TD/TT: - Differential Diagnosis Arthralgia, anginal equivalent, Critical care attestation.: If time is entered above; I have spent that time in minutes in the direct care of this critically ill patient, excluding procedure time. ED Disposition Clinical Impression: Left shoulder pain, Right shoulder pain Disposition: 01 HOME / SELF CARE / HOMELESS Is pt being admited?: No Does the pt Need Aspirin: No Condition: Stable Instructions: Shoulder Pain Additional Instructions: Return to the emergency department should you develop worsening symptoms, inability to tolerate food or liquids, high fever or any other concerns Prescriptions: Naproxen [Naprosyn] 500 mg PO Q12H PRN #20 PRN Reason: Pain, Moderate (4-6) traMADoL [Ultram] 50 mg PO Q6HR PRN #20 tablet PRN Reason: Pain Referrals: CARTER KENDRICK MD [Staff Physician] - 3-5 Days (Dr. Kendrick is an orthopedic surgeon. Please follow-up with him for further evaluation) Time of Disposition: 03:43
[2021-09-01 23:44] LABS: Basophils % (Auto) 0.4 % (0.0-1.8); Eosinophils % (Auto) 0.3 % (0.0-4.3); Hematocrit 39.2 % (35.5-45.6); Hemoglobin 13.1 gm/dl (11.8-15.2); Lymphocytes # (Auto) 0.7 K/mm3 (1.2-5.4); Lymphocytes % (Auto) 11.5 % (13.4-35.0); Mean Corpuscular HGB Conc 33 % (32-34); Mean Corpuscular Volume 96 fl (84-94); Monocytes # (Auto) 0.3 K/mm3 (0.0-0.8); Monocytes % (Auto) 5.7 % (0.0-7.3); Platelet Count 144 K/mm3 (140-440); Red Blood Count 4.07 M/mm3 (3.65-5.03); Red Cell Distribution Width 13.5 % (13.2-15.2)
--- NOTE | 2021-09-01 23:55 | XRay Report ---
XR shoulder BILAT 2+V INDICATION / CLINICAL INFORMATION: Pain. COMPARISON: None available. FINDINGS: No acute fracture or malalignment of either shoulder. There is mild osteoarthritis bilaterally. No fo jennifer soft tissue abnormality. Visualized lungs are clear. IMPRESSION: No acute osseous abnormality of either shoulder. Signer Name: Orestes Bernal MD Signed: 09/01/2021 11:51 PM Workstation Name: [id number]
[2021-09-02 00:09] LABS: BUN/Creatinine Ratio 21; Blood Urea Nitrogen 23 mg/dL (9-20); Calcium 9.8 mg/dL (8.4-10.2); Creatine Kinase MB 4.9 ng/mL (0.0-4.0); Hemolysis Index 5
[2021-09-02 12:03] VITALS: BP 121/64
--- NOTE | 2021-09-03 09:57 | Electrocardiograph Report ---
[facility] Test Date: 2021-09-02 Test Time: 01:02:22 Pat Name: CYRUS ALMANZA Department: Room: Gender: M Hair Boiler: NIC : 1950 Requested By: GRETTA MCCULLOUGH Order Number: [id number] Reading MD: Jordan Anthony Measurements Intervals [place] Rate: 78 P: 65 NM: 163 QRS: 10 QRSD: 96 T: 66 QT: 417 QTc: 475 Interpretive Statements Pacemaker spikes or artifacts Sinus rhythm Atrial premature complex Probable anteroseptal infarct, old No previous ECG available for comparison Electronically Signed On 09-03-2021 9:57:24 EDT by Jordan Anthony
== END 2021-09-02 12:03 | disposition home or self-care (01) ==
LOC: ED 22:04
DX: M25.512 Pain in left shoulder (principal); M25.511 Pain in right shoulder; I10 Essential (primary) hypertension; Z86.73 Personal history of transient ischemic attack (TIA), and cerebral infarction without residual deficits; F17.200 Nicotine dependence, unspecified, uncomplicated
CPT/HCPCS: 36415; 80048; 82550; 82553; 84484; 85025; 93005; 99284

== ENCOUNTER 2021-09-03 02:32 | Emergency (ER) | payer MEDICARE ==
--- NOTE | 2021-09-03 07:09 | Emergency Department Report ---
HPI - General Chief Complaint: Alcohol Time Seen by Provider: 09/03/21 06:51 - HPI HPI: Room 1 The patient is a 71-year-old male brought in by police for unknown reasons. The patient was seen here last night and left AGAINST MEDICAL ADVICE. Patient s tates she was standing outside of a convenience store when police contacted. When asked why the patient states he does not know. The patient states police told him "they are going to come see me." Patient denies any preceding altercation/assault. Patient denies complaints. Per the charge nurse PD did not have addressed to the patient's long term so he was dropped off here in the ED. Transportation to take the patient to his long term has already been arranged for 09:30 ED Past Medical Hx - Past Medical History Hx Hypertension: Yes Hx CVA: Yes (Left-sided weakness) Additional medical history: stroke - Surgical History Additional Surgical History: Neck surgery - Family History Family history: no significant - Social History Smoking Status: Current Every Day Smoker (04/30 pack/day) Substance Use Type: None (Denies illicit drug use), Alcohol (Occasional) - Medications Home Medications: Home Medications Medication Instructions Recorded Confirmed Last Taken Type Gabapentin 300 mg PO BID #14 cap 06/21/20 Unknown Rx HYDROcodone/APAP 5-325 [[place] 1 each PO Q6HR PRN #15 tablet 03/03/21 Unknown Rx 5/325] Ibuprofen [Motrin 400 MG tab] 400 mg PO Q8H PRN #20 tablet 03/03/21 Unknown Rx HYDROcodone/APAP 5-325 [[place] 1 - 2 each PO Q6HR PRN #14 tablet 03/08/21 Unkn own Rx 5/325] Spirometers and Accessories 1 each MC TID #1 each 03/08/21 Unknown Rx [Mistassist] Naproxen [Naprosyn] 500 mg PO Q12H PRN #20 09/02/21 Unknown Rx traMADoL [Ultram] 50 mg PO Q6HR PRN #20 tablet 09/02/21 Unknown Rx ED Review of Systems ROS: Stated complaint: MEDICAL CLEARANCE Other details as noted in HPI Constitutional: no symptoms reported Eyes: denies: eye pain ENT: denies: throat pain Respiratory: no symptoms reported Cardiovascular: denies: chest pain Endocrine: no symptoms reported Gastrointestinal: denies: abdominal pain Genitourinary: denies: dysuria Musculoskeletal: denies: back pain Neurological: denies: headache Physical Exam - Physical Exam Vital Signs: Vital Signs 09/03/21 03:57 O2 Sat by Pulse 98 Oximetry Vital Signs 09/03/21 09/03/21 03:57 07:13 Temperature 98.2 F Pulse Rate 70 Respiratory 17 Rate Blood Pressure 134/84 [Left] O2 Sat by Pulse 98 96 Oximetry Physical Exam: GENERAL: The patient is well-developed well-nourished male lying on stretcher not appearing to be in acute distress. [] HEENT: Normocephalic. Atraumatic. Extraocular motions are intact. Patient has moist mucous membranes. NECK: Supple. Trachea midline CHEST/LUNGS: Clear to auscultation. There is no respiratory distress noted. HEART/CARDIOVASCULAR: Regular. There is no tachycardia. There is no gallop rub or murmur. ABDOMEN: Abdomen is soft, nontender. Patient has normal bowel sounds. There is no abdominal distention. SKIN: There is no rash. There is no edema. There is no diaphoresis. NEURO: The patient is awake, alert, and oriented. The patient is cooperative. GCS 15. The patient has normal speech . MUSCULOSKELETAL: There is no evidence of acute injury. ED Course Vital Signs 09/03/21 03:57 O2 Sat by Pulse 98 Oximetry ED Medical Decision Making - Differential Diagnosis Normal exam Critical care attestation.: If time is entered above; I have spent that time in minutes in the direct care of this critically ill patient, excluding procedure time. ED Disposition Clinical Impression: Normal exam Disposition: 01 HOME / SELF CARE / HOMELESS Is pt being admited?: No Does the pt Need Aspirin: No Condition: Stable Instructions: Health Maintenance After Age 65, Preventive Care 65 Years and Older, Male Additional Instructions: Return to the emergency department should you develop worsening symptoms, inability to tolerate food or liquids, high fever or any other concerns Referrals: RONNI YODER MD [Primary Care Provider] - 3-5 Days Time of Disposition: 08:51
[2021-09-03 09:26] VITALS: BP 144/74
== END 2021-09-03 09:33 | disposition home or self-care (01) ==
LOC: ED 02:32
DX: Z00.00 Encounter for general adult medical examination without abnormal findings (principal); I10 Essential (primary) hypertension; F17.200 Nicotine dependence, unspecified, uncomplicated; F10.20 Alcohol dependence, uncomplicated
CPT/HCPCS: 99283

== ENCOUNTER 2021-10-02 20:28 | Emergency (ER) | payer MEDICARE ==
[2021-10-02] MEDS ORDERED: ACETAMINOPHEN 500 MG TAB PO ONE (22:57)
[2021-10-02] MEDS ORDERED: LIDOCAINE (1%) 10 MG/1 ML VIAL 20 ML MDV INFILTRATI NR (23:00)
--- NOTE | 2021-10-02 23:29 | Emergency Department Report ---
ED Head Trauma HPI - General Chief complaint: Head Injury Stated complaint: LACERATION LEFT EYEBROW Time Seen by Provider: 10/02/21 23:24 Source: patient, EMS Mode of arrival: Stretcher Limitations: No Limitations - History of Present Illness Initial comments: 71 yo M who present with a fall that occurred about 5 hours ago. Pt denies any alcohol drinking today. Bleeding is minimal with direct pressure. He says he only trip and fell. Pt however asked me for pain medication. No other modifying or associated factors reported. - Related Data Previous Rx's Medication Instructions Recorded Last Taken Type Gabapentin 300 mg PO BID #14 cap 06/21/20 Unknown Rx HYDROcodone/APAP 5-325 [[place] 1 each PO Q6HR PRN #15 tablet 03/03/21 Unknown Rx 5/325] Ibuprofen [Motrin 400 MG tab] 400 mg PO Q8H PRN #20 tablet 03/03/21 Unknown Rx HYDROcodone/APAP 5-325 [[place] 1 - 2 each PO Q6HR PRN #14 tablet 03/08/21 Unknown Rx 5/325] Spirometers and Accessories 1 each MC TID #1 each 03/08/21 Unknown Rx [Mistassist] Naproxen [Naprosyn] 500 mg PO Q12H PRN #20 09/02/21 Unknown Rx traMADoL [Ultram] 50 mg PO Q6HR PRN #20 tablet 09/02/21 Unknown Rx Allergies/Adverse reactions: Allergies Allergy/AdvReac Type Severity Reaction Status Date / Time No Known Allergies Allergy Verified 09/02/21 02:04 ED Review of Systems ROS: Stated complaint: LACERATION LEFT EYEBROW Other details as noted in HPI Comment: All other systems reviewed and negative Eyes: other (left upper orbital laceration ) ED Past Medical Hx - Past Medical History Previous Medical History?: Yes Hx Hypertension: Yes Hx CVA: Yes (Left-sided weakness) Additional medical history: stroke - Surgical History Past Surgical History?: Yes Additional Surgical History: Neck surgery - Social History Smoking Status: Current Every Day Smoker Substance Use Type: None - Medications Home Medications: Home Medications Medication Instructions Recorded Confirmed Last Taken Type Gabapentin 300 mg PO BID #14 cap 06/21/20 Unknown Rx HYDROcodone/APAP 5-325 [[place] 1 each PO Q6HR PRN #15 tablet 03/03/21 Unknown Rx 5/325] Ibuprofen [Motrin 400 MG tab] 400 mg PO Q8H PRN #20 tablet 03/03/21 Unknown Rx HYDROcodone/APAP 5-325 [[place] 1 - 2 each PO Q6HR PRN #14 tablet 03/08/21 Unkno wn Rx 5/325] Spirometers and Accessories 1 each MC TID #1 each 03/08/21 Unknown Rx [Mistassist] Naproxen [Naprosyn] 500 mg PO Q12H PRN #20 09/02/21 Unknown Rx traMADoL [Ultram] 50 mg PO Q6HR PRN #20 tablet 09/02/21 Unknown Rx ED Physical Exam - General Limitations: No Limitations General appearance: alert, in no apparent distress - Head Head exam: Present: other (left upper orbital laceration 4 cm linear and 2.5 cm linear) - Eye Eye exam: Present: normal appearance Pupils: Present: normal accommodation - ENT ENT exam: Present: normal exam, normal orophraynx, mucous membranes dry - Neck Neck exam: Present: normal inspection, full ROM. Absent: tenderness - Respiratory Respiratory exam: Present: normal lung sounds bilaterally. Absent: respiratory distress, accessory muscle use - Cardiovascular Cardiovascular Exam: Present: regular rate, normal rhythm, normal heart sounds - GI/Abdominal GI/Abdominal exam: Present: soft, normal bowel sounds. Absent: distended, tenderness - Extremities Exam Extremities exam: Present: normal inspection, normal capillary refill. Absent: tenderness - Back Exam Back exam: Absent: tenderness - Neurological Exam Neurological exam: Present: alert, oriented X3 - Psychiatric Psychiatric exam: Present: normal affect, normal mood - Skin Skin exam: Present: warm, other (laceration to the left upper orbital ) ED Course Vital Signs 10/02/21 10/02/21 10/02/21 20:28 22:42 22:43 Temperature 98.4 F Pulse Rate 91 H 69 Respiratory 18 14 Rate Blood Pressure 121/84 Blood Pressure 148/97 [Left] O2 Sat by Pulse 98 98 98 Oximetry - Reevaluation(s) Reevaluation #1: 10/02/21 23:29 here with laceration to the left upper orbital measured to be 4 cm x 0.cm and 2.5 cm x 0.5 cm linear repaired with 5.0 silk/nylon. see procedure note for details. Pt not on blood thinner and denies any headache or concern for any intracranial bleeding. - Laceration /Wound Repair Left Upper Eye Wound Location: head, face Wound Length (cm): 7 Wound's Depth, Shape: superficial, linear Wound Explored: no foreign body removed Irrigated w/ Saline (ccs): 50 Betadine Prep?: Yes Anesthesia: 1% Lidocaine Volume Anesthetic (ccs): 5 Wound Debrided: none Wound Repaired With: sutures Suture Size/Type: 5:0, nylon Number of Sutures: 9 Layer Closure?: Yes Sterile Dressing Applied?: Yes Progress: [pt tolerated procedure wall Critical care attestation.: If time is entered above; I have spent that time in minutes in the direct care of this critically ill patient, excluding procedure time. ED Disposition Clinical Impression: Laceration of left orbital rim without complication Qualifiers: Encounter type: initial encounter Qualified Code(s): S01.112A - Laceration without foreign body of left eyelid and periocular area, initial encounter Disposition: HOME / SELF CARE / HOMELESS Is pt being admited?: No Does the pt Need Aspirin: No Condition: Stable Instructions: Laceration Care, Adult, [id number], Sutured Wound Care, [id number] Additional Instructions: Avoid excessive wetness to prevent infecting your sutured wound Call and schedule a follow up with your doctor in 5-7 days for suture removal and wound check It is okay to take Over the counter Tylenol every 6-8 hours as needed for pain Call or return to ED if you have any concern or your symptoms worsen Time of Disposition: 23:34
[2021-10-03 00:29] VITALS: BP 155/96
== END 2021-10-03 00:30 | disposition home or self-care (01) ==
LOC: ED 20:28
DX: S01.112A Laceration without foreign body of left eyelid and periocular area, initial encounter (principal); I10 Essential (primary) hypertension; Z86.73 Personal history of transient ischemic attack (TIA), and cerebral infarction without residual deficits; Z98.890 Other specified postprocedural states; F17.290 Nicotine dependence, other tobacco product, uncomplicated; W01.0XXA Fall on same level from slipping, tripping and stumbling without subsequent striking against object, initial encounter; Y93.89 Activity, other specified; Y92.89 Other specified places as the place of occurrence of the external cause; Y99.8 Other external cause status
CPT/HCPCS: 99283

== ENCOUNTER 2021-10-03 15:47 | Emergency (ER) | payer MEDICARE ==
[2021-10-03] MEDS ORDERED: SODIUM CHLORIDE 0.9% 1000 ML 1,000 ML IV ONE (16:15)
--- NOTE | 2021-10-03 16:44 | XRay Report ---
CHEST 1 VIEW INDICATION: Altered Mental Status. COMPARISON: 03/02/2021 FINDINGS: SUPPORT DEVICES: None. HEART: Within normal limits. LUNGS/PLEURA: No acute air space or interstitial disease. ADDITIONAL FINDINGS: Moderate scoliotic curvature of the spine again noted. IMPRESSION: 1. No acute findings. Signer Name: Bandar De Luna MD Signed: 10/03/2021 4:39 PM Workstation Name: [id number]
[2021-10-03 16:54] LABS: Basophils % (Auto) 0.4 % (0.0-1.8); Eosinophils % (Auto) 0.4 % (0.0-4.3); Hemoglobin 14.1 gm/dl (11.8-15.2); Lymphocytes # (Auto) 0.7 K/mm3 (1.2-5.4); Mean Corpuscular HGB Conc 34 % (32-34); Mean Corpuscular Volume 98 fl (84-94); Monocytes # (Auto) 0.3 K/mm3 (0.0-0.8); Monocytes % (Auto) 6.3 % (0.0-7.3); Platelet Count 163 K/mm3 (140-440); Red Cell Distribution Width 14.4 % (13.2-15.2)
[2021-10-03 17:08] LABS: INR 1.02 (0.87-1.13)
[2021-10-03 17:17] LABS: Alanine Aminotransferase 11 units/L (7-56); Albumin 4.8 g/dL (3.9-5); BUN/Creatinine Ratio 7; Blood Urea Nitrogen 8 mg/dL (9-20); Calcium 9.8 mg/dL (8.4-10.2); Hemolysis Index 2
[2021-10-03 19:03] LABS: Bilirubin,Urine NEG (Negative); Blood,Urine SM (Negative); Color,Urine Yellow (Yellow); Urobilinogen,Urine < 2.0 mg/dL (<2.0)
[2021-10-03 19:06] LABS: Bacteria,Urine 1+ /HPF (Negative); Hyaline Casts,Urine 42 /LPF; Mucus,Urine 3+ /HPF
[2021-10-03 19:10] LABS: Amphetamine Screen,Urine Negative; Benzodiazepines Screen,Urine Negative; Cocaine Screen,Urine Negative; Methadone Screen,Urine Negative; Opiate Screen,Urine Negative
[2021-10-03 19:31] LABS: Cannabinoid Screen,Urine Positive
[2021-10-04 09:19] LABS: Hematocrit 44.5 % (35.5-45.6); Hemoglobin 14.9 gm/dl (11.8-15.2); Mean Corpuscular HGB Conc 34 % (32-34); Mean Corpuscular Volume 98 fl (84-94); Platelet Count 179 K/mm3 (140-440); Red Blood Count 4.54 M/mm3 (3.65-5.03); Red Cell Distribution Width 14.6 % (13.2-15.2)
[2021-10-04 09:39] LABS: BUN/Creatinine Ratio 14; Blood Urea Nitrogen 13 mg/dL (9-20); Calcium 9.8 mg/dL (8.4-10.2); Hemolysis Index 8
[2021-10-04] MEDS ORDERED: SODIUM CHLORIDE 0.9% 1000 ML 1,000 ML IV ONE ×2 (12:26→15:32)
--- NOTE | 2021-10-04 13:01 | Emergency Department Report ---
ED Altered Mental Status HPI - General Chief Complaint: Altered Mental Status Stated Complaint: AMS/CONFUSION Time Seen by Provider: 10/03/21 16:13 Source: EMS Mode of arrival: Stretcher Limitations: Altered Mental Status - History of Present Illness Initial Comments: 71-year male with a past medical history of CVA residual left-sided weakness, previous neck surgery, and hypertension presents to the hospital with possible alteration mental status. Patient was seen here on October 02 and had laceration repair of his left eyebrow. Patient denies LOC and imaging was not obtained at that time. He was discharged and October 03 shortly after midnight and represented 15 hours later after being seen wandering outside by police department. Patient reports that he has been walking around outside and was found to be ANO x2 with delayed response to questions. Patient was read triage with alteration in mental status diagnosis. Since he has had 2 sets of labs 1 yesterday and today and initially refused CT ordered in triage. Patient states he is homeless and he "lives here". He states all his family is . He states year is 2002. He complains of a mild headache. He states he fell injuring his head due to his chronic left-sided weakness. He states he typically ambulates with a cane but has since misplaced it As per MAR patient received 1 L normal saline prior to my evaluation and is currently eating a meal Mr. Jourdan Sylvester ([employer]) [phone] is the point of contact. - Related Data Previous Rx's Medication Instructions Recorded Last Taken Type Gabapentin 300 mg PO BID #14 cap 06/21/20 Unknown Rx HYDROcodone/APAP 5-325 [[place] 1 each PO Q6HR PRN #15 tablet 03/03/21 Unknown Rx 5/325] Ibuprofen [Motrin 400 MG tab] 400 mg PO Q8H PRN #20 tablet 03/03/21 Unknown Rx HYDROcodone/APAP 5-325 [[place] 1 - 2 each PO Q6HR PRN #14 tablet 03/08/21 Unknown Rx 5/325] Spirometers and Accessories 1 each MC TID #1 each 03/08/21 Unknown Rx [Mistassist] Naproxen [Naprosyn] 500 mg PO Q12H PRN #20 09/02/21 Unknown Rx traMADoL [Ultram] 50 mg PO Q6HR PRN #20 tablet 09/02/21 Unknown Rx Allergies Allergy/AdvReac Type Severity Reaction Status Date / Time No Known Allergies Allergy Verified 09/02/21 02:04 ED Review of Systems ROS: Stated complaint: AMS/CONFUSION Other details as noted in HPI Comment: All other systems reviewed and negative ED Past Medical Hx - Past Medical History Previous Medical History?: Yes Hx Hypertension: Yes Hx CVA: Yes (Left-sided weakness) Additional medical history: stroke - Surgical History Past Surgical History?: Yes Additional Surgical History: Neck surgery - Social History Smoking Status: Current Every Day Smoker - Medications Home Medications: Home Medications Medication Instructions Recorded Confirmed Last Taken Type Gabapentin 300 mg PO BID #14 cap 06/21/20 Unknown Rx HYDROcodone/APAP 5-325 [[place] 1 each PO Q6HR PRN #15 tablet 03/03/21 Unknown Rx 5/325] Ibuprofen [Motrin 400 MG tab] 400 mg PO Q8H PRN #20 tablet 03/03/21 Unknown Rx HYDROcodone/APAP 5-325 [[place] 1 - 2 each PO Q6HR PRN #14 tablet 03/08/21 Unk nown Rx 5/325] Spirometers and Accessories 1 each MC TID #1 each 03/08/21 Unknown Rx [Mistassist] Naproxen [Naprosyn] 500 mg PO Q12H PRN #20 09/02/21 Unknown Rx traMADoL [Ultram] 50 mg PO Q6HR PRN #20 tablet 09/02/21 Unknown Rx ED Physical Exam - General Limitations: Altered Mental Status - Other Other exam information: General: No acute distress, just completed a meal Head: Left brow laceration status postrepair with dressing in place Eyes: normal appearance ENT: Moist mucous membranes Neck: Normal appearance, no midline tenderness, previous posterior neck surgery scar Chest: Clear to auscultation bilaterally CV: Regular rate and rhythm Abdomen: Soft, normal bowel sounds, nontender, nondistended, no rebound or guarding Back: Normal inspection Extremity: Normal inspection, full range of motion Neuro: Alert O x 2, no facial asymmetry, speech clear, weak left hand plan examiner with drift to the left upper and lower extremities chronic as per patient. 5/5 right upper and lower extremities Psych: Appropriate behavior Skin: No rash ED Course Vital Signs 10/03/21 10/03/21 10/03/21 15:48 17:18 17:20 Temperature 98.3 F Pulse Rate 98 H 82 Respiratory 18 Rate Blood Pressure 179/88 Blood Pressure 136/82 [Left] O2 Sat by Pulse 97 92 92 Oximetry 10/04/21 10/04/21 10/04/21 12:00 12:06 12:16 Temperature Pulse Rate 90 Respiratory 16 22 20 Rate Blood Pressure 155/87 Blood Pressure 155/87 [Left] O2 Sat by Pulse 99 98 Oximetry 10/04/21 10/04/21 10/04/21 12:30 12:46 13:00 Temperature Pulse Rate Respiratory 20 16 21 Rate Blood Pressure 156/96 155/93 131/82 Blood Pressure [Left] O2 Sat by Pulse 97 96 96 Oximetry 10/04/21 10/04/21 10/04/21 13:16 13:30 13:46 Temperature Pulse Rate 73 Respiratory 23 21 27 H Rate Blood Pressure 156/96 156/96 152/80 Blood Pressure [Left] O2 Sat by Pulse 97 97 96 Oximetry 10/04/21 10/04/21 10/04/21 14:00 14:05 14:16 Temperature Pulse Rate 74 77 66 Respiratory 25 H 15 20 Rate Blood Pressure 151/83 155/86 Blood Pressure 155/86 [Left] O2 Sat by Pulse 96 99 96 Oximetry 10/04/21 10/04/21 10/04/21 14:30 14:46 15:00 Temperature Pulse Rate 62 79 71 Respiratory 16 17 20 Rate Blood Pressure 144/86 147/83 164/99 Blood Pressure [Left] O2 Sat by Pulse 95 Oximetry 10/04/21 10/04/21 10/04/21 15:16 15:30 15:46 Temperature Pulse Rate 66 66 75 Respiratory 20 20 22 Rate Blood Pressure 144/86 161/94 157/85 Blood Pressure [Left] O2 Sat by Pulse Oximetry 10/04/21 10/04/21 10/04/21 16:00 16:16 16:30 Temperature Pulse Rate 67 65 61 Respiratory 21 22 19 Rate Blood Pressure 157/85 157/85 157/85 Blood Pressure [Left] O2 Sat by Pulse Oximetry - Consultations Consultation #1: 10/04/21 15:50 I spoke to case management Kerwin at this time. She was able to inform me that patient lives in a [facility]. I was able to obtain the [facility] providers name and number from previous medical record in August. Apparently Calin to arrange for transport multiple times while patient was in the waiting room however and even attempted to call the nurses station multiple times. For some reason transportation was not provided despite being arranged by Kerwin twice. A new chart was made for the patient to be seen for possible confusion and ou tside exposure. I spoke to Mr. Jourdan Sylvester ([employer]) from the [facility] and see states patient never made it home from 10/02 visit and he has been awaiting his arrival. He confirms that patient has baseline confusion and cannot be safely discharged to find his own way home. Once I receive CAT scan reports to medically clear patient I will recontact case management to arrange transport back to [facility]. I plan to instruct nursing staff to keep patient in the main department instead of the waiting rooms so that he does not wander and leave the department. Also I want to make sure that a nursing staff is responsible for following up to ensure patient's transportation is arranged and he can be safely discharged back home - Lab Data Result diagrams: 10/04/21 08:05 10/04/21 08:05 Lab Results 10/03/21 10/03/21 10/03/21 Range/Units 16:15 16:15 16:33 WBC 4.8 (4.5-11.0) K/mm3 RBC 4.30 (3.65-5.03) M/mm3 Hgb 14.1 (11.8-15.2) gm/dl Hct 42.0 (35.5-45.6) % MCV 98 H (84-94) fl MCH 33 H (28-32) pg MCHC 34 (32-34) % RDW 14.4 (13.2-15.2) % Plt Count 163 (140-440) K/mm3 Lymph % (Auto) 15.0 (13.4-35.0) % [place] % (Auto) 6.3 (0.0-7.3) % Eos % (Auto) 0.4 (0.0-4.3) % Baso % (Auto) 0.4 (0.0-1.8) % Lymph # (Auto) 0.7 L (1.2-5.4) K/mm3 [place] # (Auto) 0.3 (0.0-0.8) K/mm3 Eos # (Auto) 0.0 (0.0-0.4) K/mm3 Baso # (Auto) 0.0 (0.0-0.1) K/mm3 Seg Neutrophils % 77.9 H (40.0-70.0) % Seg Neutrophils # 3.7 (1.8-7.7) K/mm3 PT (12.2-14.9) Sec. INR (0.87-1.13) Sodium (137-145) mmol/L Potassium (3.6-5.0) mmol/L Chloride (98-107) mmol/L Carbon Dioxide (22-30) mmol/L Anion Gap mmol/L BUN (9-20) mg/dL Creatinine (0.8-1.3) mg/dL Estimated GFR ml/min BUN/Creatinine Ratio % Glucose (75-100) mg/dL Lactic Acid (0.7-2.0) mmol/L Calcium (8.4-10.2) mg/dL Total Bilirubin (0.1-1.2) mg/dL AST (5-40) units/L ALT (7-56) units/L Alkaline Phosphatase (35-129) units/L Total Creatine Kinase (55-170) units/L CK-MB (CK-2) (0.0-4.0) ng/mL CK-MB (CK-2) Rel Index (0-4) Troponin T (0.00-0.029) ng/mL C-Reactive Protein (0.00-1.30) mg/dL Total Protein (6.3-8.2) g/dL Albumin (3.9-5) g/dL Albumin/Globulin Ratio % TSH (0.270-4.200) mlU/mL Urine Color Yellow (Yellow) Urine Turbidity Clear (Clear) Urine pH 5.0 (5.0-7.0) Ur Specific [place] 1.019 (1.003-1.030) Urine Protein 100 mg/dl (Negative) mg/dL Urine Glucose (UA) Neg (Negative) mg/dL Urine Ketones Neg (Negative) mg/dL Urine Blood Sm (Negative) Urine Nitrite Neg (Negative) Urine Bilirubin Neg (Negative) Urine Urobilinogen < 2.0 (<2.0) mg/dL Ur Leukocyte Esterase Neg (Negative) Urine WBC (Auto) 6.0 (0.0-6.0) /HPF Urine RBC (Auto) 4.0 (0.0-6.0) /HPF U Epithel Cells (Auto) 1.0 (0-13.0) /HPF Urine Bacteria (Auto) 1+ (Negative) /HPF Hyaline Casts 42 /LPF Urine Mucus 3+ /HPF Salicylates (2.8-20.0) mg/dL Urine Opiates Screen Negative Urine Methadone Screen Negative Acetaminophen (10.0-30.0) ug/mL Ur Barbiturates Screen Negative Ur Phencyclidine Scrn Negative Ur Amphetamines Screen Negative U Benzodiazepines Scrn Negative Urine Cocaine Screen Negative U Marijuana (THC) Screen Positive Drugs of Abuse Note Disclamer Plasma/Serum Alcohol (0-0.07) % 10/03/21 10/03/21 10/03/21 Range/Units 16:33 16:33 16:33 WBC (4.5-11.0) K/mm3 RBC (3.65-5.03) M/mm3 Hgb (11.8-15.2) gm/dl Hct (35.5-45.6) % MCV (84-94) fl MCH (28-32) pg MCHC (32-34) % RDW (13.2-15.2) % Plt Count (140-440) K/mm3 Lymph % (Auto) (13.4-35.0) % [place] % (Auto) (0.0-7.3) % Eos % (Auto) (0.0-4.3) % Baso % (Auto) (0.0-1.8) % Lymph # (Auto) (1.2-5.4) K/mm3 [place] # (Auto) (0.0-0.8) K/mm3 Eos # (Auto) (0.0-0.4) K/mm3 Baso # (Auto) (0.0-0.1) K/mm3 Seg Neutrophils % (40.0-70.0) % Seg Neutrophils # (1.8-7.7) K/mm3 PT 14.5 (12.2-14.9) Sec. INR 1.02 (0.87-1.13) Sodium 142 (137-145) mmol/L Potassium 3.7 (3.6-5.0) mmol/L Chloride 105.5 (98-107) mmol/L Carbon Dioxide 22 (22-30) mmol/L Anion Gap 18 mmol/L BUN 8 L (9-20) mg/dL Creatinine 1.1 (0.8-1.3) mg/dL Estimated GFR > 60 ml/min BUN/Creatinine Ratio 7 % Glucose 134 H (75-100) mg/dL Lactic Acid 1.90 (0.7-2.0) mmol/L Calcium 9.8 (8.4-10.2) mg/dL Total Bilirubin 0.80 (0.1-1.2) mg/dL AST 35 (5-40) units/L ALT 11 (7-56) units/L Alkaline Phosphatase 103 (35-129) units/L Total Creatine Kinase 1453 H (55-170) units/L CK-MB (CK-2) (0.0-4.0) ng/mL CK-MB (CK-2) Rel Index (0-4) Troponin T < 0.010 (0.00-0.029) ng/mL C-Reactive Protein 1.10 (0.00-1.30) mg/dL Total Protein 8.3 H (6.3-8.2) g/dL Albumin 4.8 (3.9-5) g/dL Albumin/Globulin Ratio 1.4 % TSH (0.270-4.200) mlU/mL Urine Color (Yellow) Urine Turbidity (Clear) Urine pH (5.0-7.0) Ur Specific [place] (1.003-1.030) Urine Protein (Negative) mg/dL Urine Glucose (UA) (Negative) mg/dL Urine Ketones (Negative) mg/dL Urine Blood (Negative) Urine Nitrite (Negative) Urine Bilirubin (Negative) Urine Urobilinogen (<2.0) mg/dL Ur Leukocyte Esterase (Negative) Urine WBC (Auto) (0.0-6.0) /HPF Urine RBC (Auto) (0.0-6.0) /HPF U Epithel Cells (Auto) (0-13.0) /HPF Urine Bacteria (Auto) (Negative) /HPF Hyaline Casts /LPF Urine Mucus /HPF Salicylates (2.8-20.0) mg/dL Urine Opiates Screen Urine Methadone Screen Acetaminophen (10.0-30.0) ug/mL Ur Barbiturates Screen Ur Phencyclidine Scrn Ur Amphetamines Screen U Benzodiazepines Scrn Urine Cocaine Screen U Marijuana (THC) Screen Drugs of Abuse Note Plasma/Serum Alcohol (0-0.07) % 10/03/21 10/03/21 10/03/21 Range/Units 16:33 16:33 16:33 WBC (4.5-11.0) K/mm3 RBC (3.65-5.03) M/mm3 Hgb (11.8-15.2) gm/dl Hct (35.5-45.6) % MCV (84-94) fl MCH (28-32) pg MCHC (32-34) % RDW (13.2-15.2) % Plt Count (140-440) K/mm3 Lymph % (Auto) (13.4-35.0) % [place] % (Auto) (0.0-7.3) % Eos % (Auto) (0.0-4.3) % Baso % (Auto) (0.0-1.8) % Lymph # (Auto) (1.2-5.4) K/mm3 [place] # (Auto) (0.0-0.8) K/mm3 Eos # (Auto) (0.0-0.4) K/mm3 Baso # (Auto) (0.0-0.1) K/mm3 Seg Neutrophils % (40.0-70.0) % Seg Neutrophils # (1.8-7.7) K/mm3 PT (12.2-14.9) Sec. INR (0.87-1.13) Sodium (137-145) mmol/L Potassium (3.6-5.0) mmol/L Chloride (98-107) mmol/L Carbon Dioxide (22-30) mmol/L Anion Gap mmol/L BUN (9-20) mg/dL Creatinine (0.8-1.3) mg/dL Estimated GFR ml/min BUN/Creatinine Ratio % Glucose (75-100) mg/dL Lactic Acid (0.7-2.0) mmol/L Calcium (8.4-10.2) mg/dL Total Bilirubin (0.1-1.2) mg/dL AST (5-40) units/L ALT (7-56) units/L Alkaline Phosphatase (35-129) units/L Total Creatine Kinase (55-170) units/L CK-MB (CK-2) (0.0-4.0) ng/mL CK-MB (CK-2) Rel Index (0-4) Troponin T (0.00-0.029) ng/mL C-Reactive Protein (0.00-1.30) mg/dL Total Protein (6.3-8.2) g/dL Albumin (3.9-5) g/dL Albumin/Globulin Ratio % TSH 0.650 (0.270-4.200) mlU/mL Urine Color (Yellow) Urine Turbidity (Clear) Urine pH (5.0-7.0) Ur Specific [place] (1.003-1.030) Urine Protein (Negative) mg/dL Urine Glucose (UA) (Negative) mg/dL Urine Ketones (Negative) mg/dL Urine Blood (Negative) Urine Nitrite (Negative) Urine Bilirubin (Negative) Urine Urobilinogen (<2.0) mg/dL Ur Leukocyte Esterase (Negative) Urine WBC (Auto) (0.0-6.0) /HPF Urine RBC (Auto) (0.0-6.0) /HPF U Epithel Cells (Auto) (0-13.0) /HPF Urine Bacteria (Auto) (Negative) /HPF Hyaline Casts /LPF Urine Mucus /HPF Salicylates < 0.3 L (2.8-20.0) mg/dL Urine Opiates Screen Urine Methadone Screen Acetaminophen 5.0 L (10.0-30.0) ug/mL Ur Barbiturates Screen Ur Phencyclidine Scrn Ur Amphetamines Screen U Benzodiazepines Scrn Urine Cocaine Screen U Marijuana (THC) Screen Drugs of Abuse Note Plasma/Serum Alcohol (0-0.07) % 10/03/21 10/04/21 10/04/21 Range/Units 16:33 08:05 08:05 WBC 5.0 (4.5-11.0) K/mm3 RBC 4.54 (3.65-5.03) M/mm3 Hgb 14.9 (11.8-15.2) gm/dl Hct 44.5 (35.5-45.6) % MCV 98 H (84-94) fl MCH 33 H (28-32) pg MCHC 34 (32-34) % RDW 14.6 (13.2-15.2) % Plt Count 179 (140-440) K/mm3 Lymph % (Auto) (13.4-35.0) % [place] % (Auto) (0.0-7.3) % Eos % (Auto) (0.0-4.3) % Baso % (Auto) (0.0-1.8) % Lymph # (Auto) (1.2-5.4) K/mm3 [place] # (Auto) (0.0-0.8) K/mm3 Eos # (Auto) (0.0-0.4) K/mm3 Baso # (Auto) (0.0-0.1) K/mm3 Seg Neutrophils % (40.0-70.0) % Seg Neutrophils # (1.8-7.7) K/mm3 PT (12.2-14.9) Sec. INR (0.87-1.13) Sodium 140 (137-145) mmol/L Potassium 4.0 (3.6-5.0) mmol/L Chloride 104.4 (98-107) mmol/L Carbon Dioxide 24 (22-30) mmol/L Anion Gap 16 mmol/L BUN 13 (9-20) mg/dL Creatinine 0.9 (0.8-1.3) mg/dL Estimated GFR > 60 ml/min BUN/Creatinine Ratio 14 % Glucose 146 H (75-100) mg/dL Lactic Acid (0.7-2.0) mmol/L Calcium 9.8 (8.4-10.2) mg/dL Total Bilirubin (0.1-1.2) mg/dL AST (5-40) units/L ALT (7-56) units/L Alkaline Phosphatase (35-129) units/L Total Creatine Kinase (55-170) units/L CK-MB (CK-2) (0.0-4.0) ng/mL CK-MB (CK-2) Rel Index (0-4) Troponin T < 0.010 (0.00-0.029) ng/mL C-Reactive Protein (0.00-1.30) mg/dL Total Protein (6.3-8.2) g/dL Albumin (3.9-5) g/dL Albumin/Globulin Ratio % TSH (0.270-4.200) mlU/mL Urine Color (Yellow) Urine Turbidity (Clear) Urine pH (5.0-7.0) Ur Specific [place] (1.003-1.030) Urine Protein (Negative) mg/dL Urine Glucose (UA) (Negative) mg/dL Urine Ketones (Negative) mg/dL Urine Blood (Negative) Urine Nitrite (Negative) Urine Bilirubin (Negative) Urine Urobilinogen (<2.0) mg/dL Ur Leukocyte Esterase (Negative) Urine WBC (Auto) (0.0-6.0) /HPF Urine RBC (Auto) (0.0-6.0) /HPF U Epithel Cells (Auto) (0-13.0) /HPF Urine Bacteria (Auto) (Negative) /HPF Hyaline Casts /LPF Urine Mucus /HPF Salicylates (2.8-20.0) mg/dL Urine Opiates Screen Urine Methadone Screen Acetaminophen (10.0-30.0) ug/mL Ur Barbiturates Screen Ur Phencyclidine Scrn Ur Amphetamines Screen U Benzodiazepines Scrn Urine Cocaine Screen U Marijuana (THC) Screen Drugs of Abuse Note Plasma/Serum Alcohol < 0.01 (0-0.07) % 10/04/21 Range/Units 14:12 WBC (4.5-11.0) K/mm3 RBC (3.65-5.03) M/mm3 Hgb (11.8-15.2) gm/dl Hct (35.5-45.6) % MCV (84-94) fl MCH (28-32) pg MCHC (32-34) % RDW (13.2-15.2) % Plt Count (140-440) K/mm3 Lymph % (Auto) (13.4-35.0) % [place] % (Auto) (0.0-7.3) % Eos % (Auto) (0.0-4.3) % Baso % (Auto) (0.0-1.8) % Lymph # (Auto) (1.2-5.4) K/mm3 [place] # (Auto) (0.0-0.8) K/mm3 Eos # (Auto) (0.0-0.4) K/mm3 Baso # (Auto) (0.0-0.1) K/mm3 Seg Neutrophils % (40.0-70.0) % Seg Neutrophils # (1.8-7.7) K/mm3 PT (12.2-14.9) Sec. INR (0.87-1.13) Sodium (137-145) mmol/L Potassium (3.6-5.0) mmol/L Chloride (98-107) mmol/L Carbon Dioxide (22-30) mmol/L Anion Gap mmol/L BUN (9-20) mg/dL Creatinine (0.8-1.3) mg/dL Estimated GFR ml/min BUN/Creatinine Ratio % Glucose (75-100) mg/dL Lactic Acid (0.7-2.0) mmol/L Calcium (8.4-10.2) mg/dL Total Bilirubin (0.1-1.2) mg/dL AST (5-40) units/L ALT (7-56) units/L Alkaline Phosphatase (35-129) units/L Total Creatine Kinase 1099 H (55-170) units/L CK-MB (CK-2) 5.3 H (0.0-4.0) ng/mL CK-MB (CK-2) Rel Index 0.4 (0-4) Troponin T < 0.010 (0.00-0.029) ng/mL C-Reactive Protein (0.00-1.30) mg/dL Total Protein (6.3-8.2) g/dL Albumin (3.9-5) g/dL Albumin/Globulin Ratio % TSH (0.270-4.200) mlU/mL Urine Color (Yellow) Urine Turbidity (Clear) Urine pH (5.0-7.0) Ur Specific [place] (1.003-1.030) Urine Protein (Negative) mg/dL Urine Glucose (UA) (Negative) mg/dL Urine Ketones (Negative) mg/dL Urine Blood (Negative) Urine Nitrite (Negative) Urine Bilirubin (Negative) Urine Urobilinogen (<2.0) mg/dL Ur Leukocyte Esterase (Negative) Urine WBC (Auto) (0.0-6.0) /HPF Urine RBC (Auto) (0.0-6.0) /HPF U Epithel Cells (Auto) (0-13.0) /HPF Urine Bacteria (Auto) (Negative) /HPF Hyaline Casts /LPF Urine Mucus /HPF Salicylates (2.8-20.0) mg/dL Urine Opiates Screen Urine Methadone Screen Acetaminophen (10.0-30.0) ug/mL Ur Barbiturates Screen Ur Phencyclidine Scrn Ur Amphetamines Screen U Benzodiazepines Scrn Urine Cocaine Screen U Marijuana (THC) Screen Drugs of Abuse Note Plasma/Serum Alcohol (0-0.07) % - EKG Data -: EKG Interpreted by Me EKG shows normal: sinus rhythm, ST-T waves (Biphasic T waves V3, T wave inversions V4 and 5) Rate: normal - Radiology Data Radiology results: report reviewed No acute findings were found on chest x-ray, CT head, CT cervical spine. See report - Medical Decision Making 71-year-old male presents to the hospital for possible confusion. Patient was discharged yesterday and while awaiting transport home wandered onto the ground he was brought in by police department. ED evaluation reveals elevated CK which is improving with IV hydration (3 L normal saline). No signs of renal failure. Imaging studies unremarkable. EKG abnormal but troponin negative multiple zak es the patient does not complain of chest pain. Outpatient follow-up will be advised. I confirmed with patient's social group worker Mr. Soliman that his mental status is his baseline and he never made it home as planned. Patient will be discharged home. Critical Care Time: No Critical care attestation.: If time is entered above; I have spent that time in minutes in the direct care of this critically ill patient, excluding procedure time. ED Disposition Clinical Impression: History of CVA with residual deficit, Dementia, Elevated CK, Abnormal EKG Disposition: 01 HOME / SELF CARE / HOMELESS Is pt being admited?: No Does the pt Need Aspirin: No Condition: Stable Instructions: Rhabdomyolysis Additional Instructions: Drink plenty of water to help flush out the muscle enzymes out your system. Return if you have dark Coca-Cola colored urine. Follow-up with your doctor or doctor/clinic provided. Return if symptoms worsen as indicated by your discharge instructions. Also your EKG is abnormal. You do not have any chest pain or abnormal cardiac enzymes at this time. Please follow-up with a auto phone installer as an outpatient for further heart evaluation. A auto phone installer has been provided for follow-up Referrals: INES ROBLES MD [Staff Physician] - 3-5 Days (Floor Person) RONNI YODER MD [Staff Physician] - 3-5 Days (Primary care doctor) Time of Disposition: 16:59
[2021-10-04 15:02] LABS: Creatine Kinase MB 5.3 ng/mL (0.0-4.0)
--- NOTE | 2021-10-04 16:00 | Cat Scan Report ---
CT BRAIN: 10/04/2021 INDICATION / CLINICAL INFORMATION: fall head injury, confusion. COMPARISON: CT brain 06/21/2020 FINDINGS: BRAIN/INTRACRANIAL STRUCTURES: Unenhanced CT images of the brain demonstrate no evidence of acute abn ormality. Ventricles and sulci are prominent in size, consistent with diffuse age-related atrophic change. Exte nsive chronic white matter hypoattenuation bilateral basal ganglia lacunar changes are present, consi stent with extensive chronic small vessel ischemic change. There is no evidence of acute large vessel territory ischemic injury, hemorrhage, or mass. There are no abnormal extra-axial fluid collections. EXTRACRANIAL STRUCTURES: Unremarkable. IMPRESSION: No acute abnormality. Stable extensive chronic and age-related changes. All CT scans at this location are performed using dose reduction to ALARA by means of automated expos ure control. Signer Name: Beau Qiu MD Signed: 10/04/2021 3:56 PM Workstation Name: [id number]
--- NOTE | 2021-10-04 16:03 | Cat Scan Report ---
CT CERVICAL SPINE: 10/04/2021 INDICATION / CLINICAL INFORMATION: fall head injury, confusion. COMPARISON: None available. FINDINGS: CT images of the cervical spine were obtained. Images are evaluated in the axial, coronal, and sagitt al planes. Unenhanced CT images of the cervical spine were obtained. There is no evidence of acute abnormality. There is been prior posterior spinous process fusion procedure at the C4-5 level. The C4-5 disc space appears to be fused. Posterior fixation wires are present, with apparent fusion involving posterior elements from C3 through C5. Degenerative disc space narrowing and osteophyte formation is prominent at the C6-7 and C7-T1 levels. CRANIOCERVICAL JUNCTION: Unremarkable. PARASPINAL STRUCTURES: Unremarkable IMPRESSION: No acute abnormality. Postoperative and degenerative changes. All CT scans at this location are performed using dose reduction to ALARA by means of automated expos ure control. Signer Name: Beau Qiu MD Signed: 10/04/2021 3:58 PM Workstation Name: [id number]
[2021-10-05 10:17] VITALS: BP 156/69
--- NOTE | 2021-10-07 18:44 | Electrocardiograph Report ---
[facility] Test Date: 2021-10-04 Test Time: 13:35:07 Pat Name: CYRUS ALMANZA Department: Room: Gender: M Car Sealer: NURSE : 1950 Requested By: MELO MURILLO Order Number: [id number] Reading MD: Sorin Lee Measurements Intervals [place] Rate: 76 P: 69 VA: 144 QRS: -34 QRSD: 91 T: 53 QT: 489 QTc: 551 Interpretive Statements Sinus rhythm Left ventricular hypertrophy Nonspecific anterior T wave inversions, consider ischemia Compared to ECG 09/02/2021 01:02:22 Anterior T wave inversions are now evident Electronically Signed On 10-07-2021 18:44:31 EDT by Sorin Lee
== END 2021-10-05 10:16 | disposition home or self-care (01) ==
LOC: ED 15:47
DX: F03.90 Unspecified dementia, unspecified severity, without behavioral disturbance, psychotic disturbance, mood disturbance, and anxiety (principal); Z86.73 Personal history of transient ischemic attack (TIA), and cerebral infarction without residual deficits; R94.31 Abnormal electrocardiogram [ECG] [EKG]; I10 Essential (primary) hypertension; F17.200 Nicotine dependence, unspecified, uncomplicated; Z79.899 Other long term (current) drug therapy
CPT/HCPCS: 36415; 70450; 71045; 72125; 80048; 80053; 80307; 81001; 82140; 82550; 82553; 84443; 84484; 85025; 85027; 85610; 86140; 93005; 96360; 96361; 99285; J7030; 80320; G0480